=== PATIENT | female | born 1975 | race African-American/Black ===

== ENCOUNTER 2019-08-20 22:35 | Emergency (ER) | payer OTHER ==
[~2019-08-20] VITALS: Ht 172.7 cm; Wt 95.3 kg
[2019-08-20] MEDS ORDERED: INVOKANA300 MG PO (22:49)
[2019-08-20] MEDS ORDERED: NABUMETONE 750750 M1 PO (22:50)
[2019-08-20] MEDS ORDERED: TRAMADOL 50 MG50 MG PO (22:50)
[2019-08-20] MEDS ORDERED: NAPROSYN500 MG PO (22:51)
[2019-08-20] MEDS ORDERED: ORPHENADRINE C100 M2 PO (22:51)
[2019-08-20] MEDS ORDERED: JANUMET 50-1,01 EACH PO (22:52)
[2019-08-20 22:58] LABS: URINE BILIRUBIN NEGATIVE (Negative); URINE BLOOD NEGATIVE (Negative); URINE CLARITY CLEAR; URINE COLOR YELLOW; URINE GLUCOSE-RANDOM 3+ (Negative); URINE KETONES TRACE (Negative); URINE LEUKOCYTES-REFLEX NEGATIVE (Negative); URINE NITRITE-REFLEX NEGATIVE (Negative); URINE PROTEIN NEGATIVE (Negative); URINE UROBILINOGEN 0.2 E.U./dl (0.2-1.0)
[2019-08-20 23:14] LABS: ABSOLUTE BASOPHILS 0.1 thou/uL (0.0-0.2); ABSOLUTE EOSINOPHILS 0.1 thou/uL (0.0-0.7); ABSOLUTE LYMPHOCYTES 3.1 thou/uL (0.8-5.3); ABSOLUTE MONOCYTES 0.5 thou/uL (0.0-1.2); ABSOLUTE NEUTROPHILS 2.2 thou/uL (1.6-8.1); BASOPHILS 1.1 %; EOSINOPHILS 1.6 %; LYMPHOCYTES 52.6 %; MCH 32.3 pg (26.0-34.0); MCHC 35.2 g/dL (28.0-37.0); MCV 91.8 fL (80.0-100.0); MONOCYTES 7.8 %; MPV 8.4 fl. (7.2-11.1); NUCLEATED RBCS 0 /100WBC; PLATELET COUNT* 263 thou/uL (150-400); POLYS 36.9 %; RDW-CV 13.7 % (10.5-14.5); WBC 5.9 thou/uL (4.0-11.0)
[2019-08-20 23:26] LABS: CALCIUM 8.9 mg/dL (8.5-10.1); CREATININE 0.7 mg/dL (0.6-1.3); POTASSIUM 3.5 mmol/L (3.5-5.1)
[2019-08-20 23:31] LABS: ALBUMIN 3.5 g/dL (3.4-5.0); TOTAL BILIRUBIN 0.2 mg/dL (<0.1-1.0); TOTAL PROTEIN 6.7 g/dL (6.4-8.2)
[2019-08-21] MEDS ORDERED: ZOFRAN ODT4 MG PO (05:01)
[2019-08-21] MEDS ORDERED: CLEOCIN HCL150 MG PO (05:01)
[2019-08-21] MEDS ORDERED: PERCOCET 7.5-31 EACH PO (05:01)
[2019-08-21 05:14] VITALS: BP 143/80
== END 2019-08-21 05:14 | disposition home or self-care (01) ==
LOC: M.ERS 22:35
PROVIDERS: Emergency Medicine
DX: N83.202 Unspecified ovarian cyst, left side (principal); N76.0 Acute vaginitis; B96.89 Other specified bacterial agents as the cause of diseases classified elsewhere; E11.9 Type 2 diabetes mellitus without complications; J45.909 Unspecified asthma, uncomplicated; Z90.710 Acquired absence of both cervix and uterus; Z85.850 Personal history of malignant neoplasm of thyroid

== ENCOUNTER 2019-10-14 18:12 | Emergency (ER) | payer OTHER ==
[~2019-10-14] VITALS: Ht 172.7 cm; Wt 96.2 kg
[~2019-10-14 18:12] MED LIST: CLEOCIN HCL150 MG PO; INVOKANA300 MG PO; JANUMET 50-1,01 EACH PO; NABUMETONE 750750 M1 PO; NAPROSYN500 MG PO; ORPHENADRINE C100 M2 PO; PERCOCET 7.5-31 EACH PO; TRAMADOL 50 MG50 MG PO; ZOFRAN ODT4 MG PO
[2019-10-14 18:43] LABS: URINE BILIRUBIN NEGATIVE (Negative); URINE BLOOD NEGATIVE (Negative); URINE CLARITY CLEAR; URINE COLOR YELLOW; URINE GLUCOSE-RANDOM 3+ (Negative); URINE KETONES NEGATIVE (Negative); URINE LEUKOCYTES-REFLEX NEGATIVE (Negative); URINE NITRITE-REFLEX NEGATIVE (Negative); URINE PROTEIN NEGATIVE (Negative); URINE SPECIFIC GRAVITY <= 1.005 (1.005-1.030); URINE UROBILINOGEN 0.2 E.U./dl (0.2-1.0)
[2019-10-14] MEDS ORDERED: ZOFRAN ODT4 MG SUBLING (18:49)
[2019-10-14] MEDS ORDERED: NORCO 5-325 TA1 EAC1 PO (18:49)
[2019-10-14] MEDS ORDERED: FLEXERIL PO (18:49)
[2019-10-14 19:07] LABS: ABSOLUTE BASOPHILS 0.1 thou/uL (0.0-0.2); ABSOLUTE EOSINOPHILS 0.1 thou/uL (0.0-0.7); ABSOLUTE LYMPHOCYTES 2.6 thou/uL (0.8-5.3); ABSOLUTE MONOCYTES 0.3 thou/uL (0.0-1.2); ABSOLUTE NEUTROPHILS 2.6 thou/uL (1.6-8.1); BASOPHILS 1.3 %; EOSINOPHILS 1.7 %; HEMATOCRIT 40.6 % (37.0-47.0); HEMOGLOBIN 14.3 gm/dL (12.0-15.0); LYMPHOCYTES 46.1 %; MCH 32.4 pg (26.0-34.0); MCHC 35.3 g/dL (28.0-37.0); MCV 91.7 fL (80.0-100.0); MONOCYTES 4.6 %; NUCLEATED RBCS 0 /100WBC; PLATELET COUNT* 335 thou/uL (150-400); POLYS 46.3 %; RBC 4.43 mil/uL (4.20-5.00); RDW-CV 13.3 % (10.5-14.5); WBC 5.7 thou/uL (4.0-11.0)
[2019-10-14 19:13] LABS: BE -0.3 mmol/L (-2 to +3); PCO2 VENOUS 41.7 mmHg (41.0-51.0); PO2 VENOUS 53.3 mmHg (35.0-45.0)
[2019-10-14 19:17] LABS: APTT 28.2 Seconds (25.0-31.3); PROTIME 9.9 Seconds (9.20-11.50)
[2019-10-14 19:19] LABS: CALCIUM 9.9 mg/dL (8.5-10.1); POTASSIUM 3.8 mmol/L (3.5-5.1)
[2019-10-14 19:27] LABS: ALBUMIN 4.3 g/dL (3.4-5.0); TOTAL BILIRUBIN 0.3 mg/dL (<0.1-1.0); TOTAL PROTEIN 8.6 g/dL (6.4-8.2)
[2019-10-14 21:46] VITALS: BP 120/78
--- NOTE | 2019-10-17 17:00 | EKG ---
[place] [address] ELECTROCARDIOGRAM REPORT Name: LAURE DARLING Room: [facility] [place]#: [id number] Admission: 10/14/19 Attend Phys: Discharge: 10/14/19 Date of : 77 Report #: [id number] THIS REPORT FOR: //name// [facility] ED Test Date: 2019-10-14 Test Time: 18:28:10 Pat Name: LAURE DARLING Department: Room: Gender: F [employer] Publisher: : 1975 Requested By: Laron Drew Order Number: [id number] MD: Zachary Valentin Measurements Intervals Holiday Rate: 103 P: 63 AK: 156 QRS: 0 QRSD: 89 T: 23 QT: 338 QTc: 443 Interpretive Statements Sinus tachycardia Probable left atrial enlargement Borderline T abnormalities, anterior leads No previous ECG available for comparison Electronically Signed On 10-17-2019 16:59:55 [employer] TECH[employer]IC[employer] by Zachary Valentin [email or web address] <ELECTRONICALLY SIGNED> By: Zachary Valentin MD, [facility] 10/17/19 1659 1828 1828 Zachary Valentin MD, FACC /EPI
== END 2019-10-14 21:46 | disposition home or self-care (01) ==
LOC: M.ERS 18:12
PROVIDERS: Family Medicine
DX: E11.9 Type 2 diabetes mellitus without complications (principal); J45.909 Unspecified asthma, uncomplicated; Z90.710 Acquired absence of both cervix and uterus; Z85.850 Personal history of malignant neoplasm of thyroid

== ENCOUNTER 2019-12-13 08:21 | Emergency (ER) | payer OTHER ==
[~2019-12-13] VITALS: Ht 172.7 cm; Wt 97.5 kg
[~2019-12-13 08:21] MED LIST changes: +FLEXERIL PO; +NORCO 5-325 TA1 EAC1 PO; +ZOFRAN ODT4 MG SUBLING
[2019-12-13] MEDS ORDERED: HUMALOG100 UNIT/1 SUBQ (08:36)
[2019-12-13 09:20] LABS: INFLUENZA A ANTIGEN Negative (Negative); INFLUENZA B ANTIGEN Negative (Negative)
[2019-12-13 09:35] LABS: ABSOLUTE EOSINOPHILS 0.1 thou/uL (0.0-0.7); ABSOLUTE LYMPHOCYTES 0.6 thou/uL (0.8-5.3); ABSOLUTE MONOCYTES 0.3 thou/uL (0.0-1.2); BASOPHILS 1.1 %; EOSINOPHILS 1.9 %; HEMATOCRIT 34.7 % (37.0-47.0); HEMOGLOBIN 12.1 gm/dL (12.0-15.0); LYMPHOCYTES 15.5 %; MCH 32.1 pg (26.0-34.0); MCHC 34.8 g/dL (28.0-37.0); MCV 92.4 fL (80.0-100.0); MONOCYTES 7.2 %; MPV 8.2 fl. (7.2-11.1); NUCLEATED RBCS 0 /100WBC; PLATELET COUNT* 195 thou/uL (150-400); POLYS 74.3 %; RBC 3.76 mil/uL (4.20-5.00); RDW-CV 13.6 % (10.5-14.5); WBC 4.1 thou/uL (4.0-11.0)
[2019-12-13 09:42] LABS: CALCIUM 8.7 mg/dL (8.5-10.1); CREATININE 0.7 mg/dL (0.6-1.3); POTASSIUM 3.7 mmol/L (3.5-5.1)
[2019-12-13 09:47] LABS: ALBUMIN 3.3 g/dL (3.4-5.0); TOTAL BILIRUBIN 0.4 mg/dL (<0.1-1.0); TOTAL PROTEIN 6.7 g/dL (6.4-8.2)
[2019-12-13 09:55] LABS: URINE BILIRUBIN NEGATIVE (Negative); URINE BLOOD NEGATIVE (Negative); URINE CLARITY CLEAR; URINE COLOR YELLOW; URINE GLUCOSE-RANDOM NEGATIVE (Negative); URINE KETONES NEGATIVE (Negative); URINE LEUKOCYTES-REFLEX NEGATIVE (Negative); URINE NITRITE-REFLEX NEGATIVE (Negative); URINE PROTEIN NEGATIVE (Negative); URINE UROBILINOGEN 0.2 E.U./dl (0.2-1.0)
[2019-12-13] MEDS ORDERED: IBUPROFEN 800800 MG PO (10:44)
[2019-12-13] MEDS ORDERED: PHENERGAN 25 MG25 M1 PO (10:44)
[2019-12-13] MEDS ORDERED: TYLENOL WITH CO1 TAB PO (10:44)
[2019-12-13] MEDS ORDERED: MEDROLDOSEPACK PO (10:57)
[2019-12-13] MEDS ORDERED: PROAIR HFA8.5 GM INH (10:57)
[2019-12-13 11:23] VITALS: BP 131/78
== END 2019-12-13 11:24 | disposition home or self-care (01) ==
LOC: M.ERS 08:21
PROVIDERS: Personal Emergency Response Attendant
DX: B34.9 Viral infection, unspecified (principal); R51 Headache; E11.9 Type 2 diabetes mellitus without complications; J45.909 Unspecified asthma, uncomplicated; Z90.710 Acquired absence of both cervix and uterus; Z85.850 Personal history of malignant neoplasm of thyroid; Z79.4 Long term (current) use of insulin